=== PATIENT | female | born 1965 | race Caucasian/White ===

== ENCOUNTER 2019-05-16 18:04 | Emergency (ER) | payer MEDICAID ==
--- NOTE | 2019-05-16 20:10 | EDM.PDOC ---
ED HPI GENERAL MEDICAL PROBLEM - General Chief Complaint: Gastrointestinal Problem Stated Complaint: RECTAL BLEEDING Time Seen by Provider: 05/16/19 20:09 Source of Information: Reports: Patient History Limitations: Reports: No Limitations - History of Present Illness INITIAL COMMENTS - FREE TEXT/NARRATIVE: Patient is 53 a female past [employer] presenting with a chief complaint of diarrhea. Patient states that the diarrhea started yesterday. Patient noticed that the diarrhea gradually started turning red today. Patient reports feeling some rectal pain and feels like that she has associated hemorrhoids. Patient does not have any prior history of hemorrhoids. Patient denies any fever, nausea, vomiting. Patient feels that everything she eats goes right through her. Patient does feel some associated cramping in the lower abdominal region without radiation. Nothing seems to make her symptoms better. Pmhx: Per HPI Pshx: None Family Hx: noncontributory Smoking history? no Etoh use? none Drug use? none In addition to that documented in the HPI above, the additional ROS was obtained : Constitutional: Denies fevers or chills Eyes: Denies vision changes ENMT: Denies sore throat CV: Denies chest pain Resp: Denies SOB GI: Per HPI : Denies painful urination MSK: Denies recent trauma Skin: Denies new rashes Neuro: Denies new numbness or tingling or weakness Endocrine: Denies unexpected weight loss Heme: Denies bleeding disorders I have reviewed the triage vital signs Const: Well nourished, well developed, appears stated age Eyes: PERRL, no conjunctival injection HENT: NCAT, Neck supple without meningismus CV: RRR, Warm, well-perfused extremities RESP: CTAB, Unlabored respiratory effort GI: soft, non-tender, non-distended, no masses MSK: No gross deformities appreciated Skin: Warm, dry. 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 Sensation and motor function of extremities grossly intact. Psych: Appropriate mood and affect Assessment and plan: Patient 53-year-old female presenting with abdominal pain and bloody diarrhea. Patient's labs demonstrate leukocytosis. Patient no evidence of sepsis on exam. CT scan demonstrates colitis without any evidence of diverticulitis or abscess. Patient is tolerating p.o. Patient vital signs stable. Patient started on oral antibiotics and discharged home. Checked EKG to examine for QTC prolongation before giving ciprofloxacin and Zofran. All questions addressed and answered. Patient agrees with plan. Abdomen Pain Score (Numeric/FACES): 8 - Related Data Allergies Allergy/AdvReac Type Severity Reaction Status Date / Time sulfamethoxazole Allergy Hives Verified 05/16/19 19:14 [From Bactrim] trimethoprim [From Bactrim] Allergy Hives Verified 05/16/19 19:14 Home Meds: Home Meds Ciprofloxacin HCl [Cipro] 500 mg PO BID #14 tablet 05/16/19 [Rx] Ondansetron [Zofran ODT] 4 mg PO Q6H #12 tab.dis 05/16/19 [Rx] metroNIDAZOLE [Flagyl] 250 mg PO BID #14 tablet 05/16/19 [Rx] Past Medical History Gastrointestinal History: Reports: Irritable Bowel Syndrome Dermatologic History: Reports: Eczema - Infectious Disease History Infectious Disease History: Reports: Chicken Pox Social & Family History - Tobacco Use Smoking Status *Q: Current Every Day Smoker Years of Tobacco use: 10 Packs/Tins Daily: 1 - Recreational Drug Use Recreational Drug Use: No ED ROS GENERAL - Review of Systems Review Of Systems: See Below ED EXAM, GI/ABD - Physical Exam Exam: See Below Course - Vital Signs Last Recorded V/S: Last Vital Signs Temp 36.3 C 05/17/19 00:14 Pulse 77 05/17/19 00:14 Resp 17 05/17/19 00:14 BP 134/78 05/17/19 00:14 Pulse Ox 97 05/17/19 00:14 - Orders/Labs/Meds Orders: Active Orders 24 hr Category Date Time Status EKG Documentation Completion [RC] STAT Care 05/16/19 23:52 Active Ranitidine [Zantac] Med 05/16/19 21:00 Active 150 mg PO BID Medication Orders Ranitidine HCl (Zantac) 150 mg PO BID [facility] Last Admin: 05/16/19 20:47 Dose: 10 ml Labs: Laboratory Tests 05/16/19 05/16/19 Range/Units 20:33 20:33 WBC 14.52 H (4.0-11.0) K/uL RBC 4.94 (4.30-5.90) M/uL Hgb 16.3 H (12.0-16.0) g/dL Hct 46.8 H (36.0-46.0) % MCV 94.7 (80.0-98.0) fL MCH 33.0 H (27.0-32.0) pg MCHC 34.8 (31.0-37.0) g/dL RDW Std Deviation 41.6 (28.0-62.0) fl RDW Coeff of Aníbal 12 (11.0-15.0) % Plt Count 223 (150-400) K/uL MPV 11.00 (7.40-12.00) fL Neut % (Auto) 83.9 H (48.0-80.0) % Lymph % (Auto) 10.5 L (16.0-40.0) % [place] % (Auto) 5.4 (0.0-15.0) % Eos % (Auto) 0.1 (0.0-7.0) % Baso % (Auto) 0.1 (0.0-1.5) % Neut # (Auto) 12.2 H (1.4-5.7) K/uL Lymph # (Auto) 1.5 (0.6-2.4) K/uL [place] # (Auto) 0.8 (0.0-0.8) K/uL Eos # (Auto) 0.0 (0.0-0.7) K/uL Baso # (Auto) 0.0 (0.0-0.1) K/uL Nucleated RBC % 0.0 /100WBC Nucleated RBCs # 0 K/uL Sodium 140 (136-145) mmol/L Potassium 4.5 (3.5-5.1) mmol/L Chloride 103 (98-107) mmol/L Carbon Dioxide 25.8 (21.0-32.0) mmol/L BUN 9 (7.0-18.0) mg/dL Creatinine 0.9 (0.6-1.0) mg/dL Est Cr Clr Drug Dosing 66.90 mL/min Estimated GFR (MDRD) > 60.0 ml/min Glucose 121 H (74-106) mg/dL Calcium 9.1 (8.5-10.1) mg/dL Total Bilirubin 0.6 (0.2-1.0) mg/dL AST 34 (15-37) IU/L ALT 56 (14-63) IU/L Alkaline Phosphatase 108 (46-116) U/L Total Protein 7.7 (6.4-8.2) g/dL Albumin 3.6 (3.4-5.0) g/dL Globulin 4.1 H (2.6-4.0) g/dL Albumin/Globulin Ratio 0.9 (0.9-1.6) Lipase 183 (73-393) U/L Meds: Medications Generic Name Dose Route Start Last Admin Trade Name Freq PRN Reason Stop Dose Admin Ranitidine HCl 150 mg 05/16/19 21:00 05/16/19 20:47 Zantac PO 10 ml BID RAD Administration Discontinued Medications Generic Name Dose Route Start Last Admin Trade Name Freq PRN Reason Stop Dose Admin Ciprofloxacin 500 mg 05/16/19 23:50 05/17/19 00:07 Ciprofloxacin Hcl PO 05/16/19 23:51 500 mg ONETIME ONE Administration Iopamidol 100 ml 05/16/19 21:31 05/16/19 22:29 Isovue-370 (76%) IVPUSH 05/16/19 21:32 100 ml ONETIME STA Administration Metronidazole 250 mg 05/16/19 23:50 05/17/19 00:08 Metronidazole PO 05/16/19 23:51 250 mg ONETIME ONE Administration Ondansetron HCl 4 mg 05/16/19 20:40 05/16/19 20:48 Zofran Odt PO 05/16/19 20:41 4 mg ONETIME ONE Administration Departure - Departure Time of Disposition: 00:20 Disposition: Home, Self-Care 01 Clinical Impression: Colitis - Discharge Information Prescriptions: Ciprofloxacin HCl [Cipro] 500 mg PO BID #14 tablet metroNIDAZOLE [Flagyl] 250 mg PO BID #14 tablet Ondansetron [Zofran ODT] 4 mg PO Q6H #12 tab.dis Instructions: Abdominal Pain, Adult, [id number] Referrals: PCP,None [Primary Care Provider] - Forms: ED Department Discharge Care Plan Goals: The following information is given to patients seen in the emergency department who are being discharged to home. This information is to outline your options for follow-up care. We provide all patients seen in our emergency department with a follow-up referral. The need for follow-up, as well as the timing and circumstances, are variable depending upon the specifics of your emergency department visit. If you don't have a primary care physician on staff, we will provide you with a referral. We always advise you to contact your personal physician following an emergency department visit to inform them of the circumstance of the visit and for follow-up with them and/or the need for any referrals to a consulting specialist. The emergency department will also refer you to a specialist when appropriate. This referral assures that you have the opportunity for follow-up care with a specialist. All of these measure are taken in an effort to provide you with optimal care, which includes your follow-up. Under all circumstances we always encourage you to contact your private physician who remains a resource for coordinating your care. When calling for follow-up care, please make the office aware that this follow-up is from your recent emergency room visit. If for any reason you are refused follow-up, please contact the [facility] at and asked to speak to the emergency department charge nurse. [facility] [address] [place] [id number] [address] [address] Sepsis Event Note - Evaluation Sepsis Screening Result: No Definite Risk - Focused Exam Vital Signs: Vital Signs Temp Pulse Resp BP Pulse Ox 05/17/19 00:14 36.3 C 77 17 134/78 97 05/16/19 19:09 35.6 C L 84 16 130/62 95 Date Exam was Performed: 05/17/19 Time Exam was Performed: 00:19 - My Orders Last 24 Hours: My Active Orders 05/16/19 21:00 Ranitidine [Zantac] 150 mg PO BID 05/16/19 23:52 EKG Documentation Completion [RC] STAT - Assessment/Plan Last 24 Hours: My Active Orders 05/16/19 21:00 Ranitidine [Zantac] 150 mg PO BID 05/16/19 23:52 EKG Documentation Completion [RC] STAT
[2019-05-16] MEDS ORDERED: Ondansetron 4 MG Tab.DIS PO ONE (20:40)
[2019-05-16] MEDS ORDERED: Ranitidine 15 MG/ML Syrup 10 ML UD Cup PO SCH (21:00)
[2019-05-16 21:07] LABS: BLOOD UREA NITROGEN,BUN 9 mg/dL (7.0-18.0); CARBON DIOXIDE,CO2 25.8 mmol/L (21.0-32.0); CHLORIDE,CL 103 mmol/L (98-107); GLUCOSE RANDOM 121 mg/dL (74-106); LIPASE 183 U/L (73-393); POTASSIUM,K 4.5 mmol/L (3.5-5.1); SODIUM,NA 140 mmol/L (136-145)
[2019-05-16] MEDS ORDERED: Iopamidol 755 Mg/ML 100 ML Bottle IVPUSH STA (21:31)
--- NOTE | 2019-05-16 23:37 | CT ---
INDICATION: Abdominal pain with bloody diarrhea TECHNIQUE: Axial images were obtained from the diaphragm to the pubic symphysis. Reformats were obtained in the coronal and sagittal plane. IV Contrast: 100 cc Isovue 370 Oral Contrast: None COMPARISON: None. FINDINGS: Lower chest: Discoid atelectasis left lower lobe. Liver: Diffusely decreased density liver consistent with fatty infiltration with likely focal spurring adjacent to the gallbladder fossa. Gallbladder and bile ducts: Distended gallbladder without localizing inflammation. Spleen: Unremarkable. Normal in size without mass. Pancreas: Unremarkable. No mass or inflammation. Adrenal glands: Unremarkable. No nodules. Kidneys: Unremarkable. No masses, stones, or hydronephrosis. Vasculature: Atherosclerosis without abdominal aortic aneurysm. GI tract: Stomach is unremarkable. No dilated loops of large or small intestine. Colonic wall thickening from the transverse colon extending to the level of the rectum. No evidence of abscess. Mild adjacent fat stranding. Pelvis: Unremarkable. Bones: Osteitis pubis. IMPRESSION: 1. Colonic wall thickening extending from the transverse colon to the rectum consistent with a colitis. Differential includes infectious colitis, inflammatory bowel disease or ischemic colitis. No abscess. 2. Fatty infiltration of the liver. Please note that all CT scans at this facility use dose modulation, iterative reconstruction, and/or weight-based dosing when appropriate to reduce radiation dose to as low as reasonably achievable. Dictated by Mansoor Macdonald MD @ May 16 2019 11:23PM Signed by Dr. Mansoor Macdonald @ May 16 2019 11:36PM
[2019-05-16] MEDS ORDERED: Ciprofloxacin 500 MG Tab PO ONE (23:50)
[2019-05-16] MEDS ORDERED: metroNIDAZOLE 250 MG Tab PO ONE (23:50)
== END 2019-05-17 00:17 | disposition home or self-care (01) ==
LOC: MW.ED 18:04
DX: K52.9 Noninfective gastroenteritis and colitis, unspecified (principal); F17.210 Nicotine dependence, cigarettes, uncomplicated; Z88.2 Allergy status to sulfonamides
CPT/HCPCS: 36415; 74177; 80053; 83690; 85025; 93005; 99284; A9270; Q9967